=== PATIENT | female | born 1995 | race Caucasian/White ===

== ENCOUNTER 2024-02-06 09:23 | Outpatient (CLI) | payer OTHER, SELFPAY ==
[2024-02-06 18:41] LABS: Hemoglobin 13.7 g/dL (12.0-15.0); Mean Corpuscular HGB Conc 31.1 g/dl (32-36); Mean Corpuscular Hemoglobin 30.6 pg (26-34); Mean Corpuscular Volume 98.4 fl (80-100); Mean Platelet Volume 10.9 fl (7.4-10.4); Platelet Count Result 314 k/mm3 (150-375); Red Blood Count 4.47 M/mm3 (4.2-5.4); Red Cell Distribution Width 13.2 % (11.5-14.5); White Blood Count 7.8 K/mm3 (4.5-10.0)
[2024-02-06 18:45] LABS: Alanine Aminotransferase 35 U/L (6-35); Albumin Level 4.4 g/dL (3.5-5.1); Alkaline Phosphatase 71 U/L (38-126); Anion Gap 8 mmol/L (4-12); Aspartate Amino Transferase 76 U/L (14-36); Bilirubin,Total 0.3 mg/dL (0.2-1.3); Blood Urea Nitrogen 12 mg/dL (7-17); Calcium 9.4 mg/dL (8.4-10.2); Carbon Dioxide 28 mmol/L (22-30); Chloride 101 mmol/L (98-107); Cholesterol 169 mg/dL (0-200); Estimated Glomerular Filt Rate > 60; Glucose 96 mg/dL (65-110); HDL Direct 31 mg/dL; Potassium 4.4 mmol/L (3.4-5.0); Sodium 137 mmol/L (137-145); Triglycerides 79 mg/dL (<150)
[2024-02-06 18:55] LABS: LDL Cholesterol Direct 114 mg/dL
[2024-02-06 19:47] LABS: Folic Acid 7.8 ng/mL (2.76->20)
== END 2024-02-06 09:24 | disposition home or self-care (01) ==
LOC: ANHBWCLAB 09:27
PROVIDERS: PCP Nurse Practitioner Adult Health; Visit Provider Nurse Practitioner Adult Health
DX: Z13.9 Encounter for screening, unspecified (principal)
CPT/HCPCS: 36415; 80053; 80061; 82607; 82746; 84443; 85027

== ENCOUNTER 2024-02-28 13:45 | Outpatient (CLI) | payer OTHER, SELFPAY ==
[2024-02-28 20:11] LABS: Add Urine Microscopic? YES; Appearance Urine Cloudy (Clear); Bacteria Urine 4+ /hpf; Bilirubin Urine Negative (Negative); Blood Urine Negative (Negative); Color Urine Yellow (Yellow); Glucose Urine UA Negative (Negative); Ketones Urine Negative (Negative); Leukocyte Esterase Ur 2+ LEU/UL (Negative); Need Manual Microscopic Reviewed; Nitrate Urine Positive (Negative); Protein Urine Negative (Negative); RBC Urine 0-2 /hpf (0-2); Specific Grav Ur 1.022 (1.001-1.035); Squamous Epithelial Cell Urine None Seen /hpf (Few); Urobilinogen Urine 0.2 mg/dL (<2.0); WBC Urine >100 /hpf (0-3); pH Urine 5.5 (5.0-9.0)
== END 2024-02-28 13:46 | disposition home or self-care (01) ==
LOC: ANHBWCLAB 13:47
PROVIDERS: PCP Nurse Practitioner Adult Health; Visit Provider Nurse Practitioner Adult Health
DX: R39.9 Unspecified symptoms and signs involving the genitourinary system (principal)
CPT/HCPCS: 81001; 87077; 87086; 87088; 87186

== ENCOUNTER 2025-02-06 13:44 | Outpatient (CLI) | payer OTHER, SELFPAY ==
--- NOTE | ~2025-02-06 | XR_ITS ---
EXAMINATION: XR abdomen/kub 1V DATE: 02/06/2025 13:55 INDICATION: Left-sided flank pain TECHNIQUE: A supine view of the abdomen on 2 radiographs was obtained. COMPARISON: None. FINDINGS: No evident nephrolithiasis. Moderate amount of stool in the colon with proximal colon predominance which is superimposed over portions of the kidneys and ureters decreasing sensitivity for tiny renal stones. Cholecystectomy clips in right upper quadrant possible trochlea in the left hemipelvis. IMPRESSION: 1. No evident nephrolithiasis. Sensitivity for tiny stones is decreased by superimposed mottled pattern of colonic stool. Reviewed, dictated and finalized at location A. IMPRESSION: 1. No evident nephrolithiasis. Sensitivity for tiny stones is decreased by supe rimposed mottled pattern of colonic stool.
--- OUTSIDE RECORDS SUMMARY | 2025-02-06 13:54 | XMS_ITS | Clinical Summary ---
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 Gender Identity Not on file Sexual Orientation Not on file Plan of Treatment Health Maintenance Due Date Last Done Comments Hepatitis C Virus (HCV) Screening 1994 TdaP Immunization 1994 Hepatitis B Immunization (1 of 3 - 19+ 3-dose series) 2013 Pap Smear 2015 Human Papillomavirus (HPV) Immunization (1 - 3-dose SCDM series) 2021 SARS-COV-2 Immunization ( season) 2024 Cervical Cancer Screening (CCS) 2024 HPV/Cotest 2024 Influenza Immunization (#1) 2025 Respiratory Syncytial Virus (RSV) Immunization (Adult) (1 - 1-dose 75+ series) 2069 Meningococcal Immunization (ACWY) Aged Out No longer eligible based on patient's age to complete this topic Pneumococcal Immunization Combined Aged Out No longer eligible based on patient's age to complete this topic Rotavirus Immunization Aged Out No lo nger eligible based on patient's age to complete this topic Insurance [employer] on file
--- OUTSIDE RECORDS SUMMARY | 2025-02-06 13:54 | XMS_ITS | Clinical Summary ---
Author Organization [facility] Address [address] [place] [address] Care Team Providers Care Telephone Answerer Name Role Phone Jax Kumari MD Unavailable [phone] Jax Kumari MD Primary Care Provider [phone] Source Comments [facility],non-owned Affiliates and Associated Physician Practices is amultiple site organization consisting of ambulatory clinics and hospital sitesin [place], [place], [place] and [place]. This disclosure is being madepursuant to the Care Everywhere program and may not contain all information available regarding this patient. Last updated 18.[facility] Allergies Active Allergy Reactions Criticality Noted Date Comments Amoxicillin Vomiting 11/01/2018 Cyclobenzaprine Nausea and/or Vomiting 08/19/19 18 Latex Swelling Low 02/08/2011 Penicillins Vomiting 11/01/2018 Sulfa Drugs Other 06/24/2019 bad yeast infections Vancomycin Urticaria,Swelling Medium 10/19/2022 Medications * Be aware that medications may not be up to date on this document. Alwaysverify current medications with the patient. ibuprofen (MOTRIN) 800 MG tablet Take 1 (one) tablet by mouth every 8 hours as needed 30 tablet 1 2 Active acetaminophen (TYLENOL) 325 MG tablet Take 2 (two) tablets by mouth every 6 hours as needed for Fever or Pain Maximum allowable Acetaminophen amount = 4 Grams (4000 mg) / 24 hours. 2 Active oxyBUTYnin CR 24hr (Ditropan-XL) 10 MG tablet Take 1 (one) tablet by mouth once daily 3 Active tamsulosin (Flomax) 0.4 MG capsule Take 1 (one) capsule by mouth once daily 3 Active estradiol (Estrace) 2 MG tablet Take 1 (one) tablet by mouth once daily 90 tablet 4 3 Active Vagifem 10 MCG vaginal tablet INSERT 1 TABLET INTO VAGINA DAILY AT BEDTIME X 2 WEEKS THEN 2 TIMES WEEKLY UNTIL GONE DIRECTED 34 tablet 3 Active Active Problems Problem Noted Date Diagnosed Date Abdominal pain 04/05/2023 04/05/2023 Postsurgical menopause 10/19/2022 Hot flashes 10/19/2022 Complication of surgical procedure 09/07/2022 10/19/2022 Anxiety 08/30/2022 10/19/2022 Overview (10/19/2022): Last Assessment & Plan: - Cont amitriptyline High risk medication use 08/30/2022 023 Overview (10/19/2022): Last Assessment & Plan: - Requiring IV opioids for pain control - monitor RR 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 10/19/2022 Overview (10/19/2022): Added automatically from request for surgery [id number] Pelvic abscess in female 08/02/2022 023 Pseudomonas infection 08/02/2022 10/19/2022 Dysfunction of both eustachian tubes 04/01/2022 10/19/2022 Abscess of skin 11/08/2021 Acquired trigger finger 11/08/2021 Bilateral hydronephrosis 11/08/2021 Cellulitis 11/08/2021 Cyst of ovary 11/08/2021 Depressive disorder 11/08/2021 Edema of foot 11/08/2021 Folliculitis 11/08/2021 Acne 11/08/2021 Herpetic ulceration of vulva 11/08/2021 Hidradenitis suppurativa 11/08/2021 Irregular periods 11/08/2021 Kidney stone 11/08/2021 Papular eruption 11/08/2021 Suppression of menstruation 11/08/2021 Threatened miscarriage 11/08/2021 Tobacco user 11/08/2021 Urinary tract infectious disease 11/08/2021 Vaginal discharge 11/08/2021 Vomiting 11/08/2021 Surgical wound, non healing 08/04/2020 Overview (11/08/2021): Last Assessment & Plan: 25yoF presents for evaluation due to poorly healing surgical wound and concern for underlying autoimmune disease. 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 She does have a recent history of recurrent and lingering infections, denies prior issues with wound healing. +History of photosensitive rashes and fatigue, otherwise denies symptoms concerning for CTD. +FH MAunt with lupus and RA. Only finding on exam is the wound dehiscence without surrounding erythema or purulent discharge. Unfortunately the AVISE panel was not completed as the sample was too old by the time it arrived at the lab, will redraw today. Her CBC, CMP, and immunoglobulin levels were are within normal limits. Overall have a low suspicion for underlying CTD, however will await AVISE and call patient with those results. Otherwise continue follow up with surgery. Interstitial cystitis 10/12/2018 Pelvic joint pain, right 09/14/2018 Chronic pelvic pain in female 09/14/2018 Dyspareunia in female 09/14/2018 History of delivery 06/29/2016 Asthma 09/23/2010 Overview (09/23/2010): Only triggers when URI Heart murmur 09/23/2010 Overview (09/30/2010): Mom born with hole in top of heart, follows at [facility] No records from this patient received. Will need to re-request if need patient's mother's records. Did not have her full maiden name. 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 Overview (02/08/2011): Follows at [facility] prednisone prn fevers, has not needed any during Home schooled IgG 802 IgA 87 IgM 143 CRP 0.3 AST 35 (H) ALT 75 (L) History of eclampsia Resolved Problems Problem Noted Date Diagnosed Date Resolved Date Acute pharyngitis 11/08/2021 11/22/2021 -induced hypertensi on in third trimester 09/05/2016 04/18/2017 Proteinuria affecting pregna ncy in third trimester 08/18/2016 04/18/2017 Overview (08/18/2016): Weekly CMP, CBC ANT with MFM Encounter for supervision of normal first in third trimester 07/25/2016 08/21/2016 History of hemorrhage 07/08/2016 04/18/2017 History of pre-eclampsia in prior , currently in third trimester 06/29/2016 Overview (07/08/2016): Seen by MFM 06/29 Recommend: 1. Continue bASA 2. ANT at 32w gestation Appendicitis 02/08/2011 08/23/2017 Overview (02/08/2011): Acute, diagnosed at [facility] and transferred by Dr. Luna Abdominal pain, RLQ (right lower quadrant) 02/08/2011 07/08/2016 Overview (02/08/2011): Acute abdomen with rebound and guarding Other apnea of 09/23/201007/08 Overview (09/23/2010): Mom had apneic episodes until 1 years old Teen 09/23/2010 07/08/2016 Supervision of high-risk pre gnancy of young primigravida 09/02/2010 07/08/2016 Overview (02/11/2011): Consult from Dr. Tana Luna [phone] Dating: by LMP consistent with documented 7wk ultrasound PNL: A+/I/-/-, HIV NR H/H/Plt: /331 on 09/28/10 Gc/Chl: negative 02/08 GCT: 103 GBS: positive on 10/01 from urine, pending 02/08 Right upper quadrant abdominal pain 04/18/2017 Maternal iron deficiency ane tsering affecting , antepartum 04/18/2017 Sudden onset of severe headache 04/18/2017 Immunizations Immunization Administration Dates Next Due INFLUENZA VACCINE, TRIV. (AF LURIA, FLUZONE TRIVALENT; 6MO+) (IIV3) 04/09/2014,07/19/2013 INFLUENZA VACCINE 03/19/2022,,08/31/2018,2017 INFLUENZA VACCINE, QUADR. (F LUZONE; FLULAVAL; FLUARIX; AFLURIA QUADRIVALENT; 6MO+), 0.5 ML (IIV4) 03/20/2023 TDAP (7yrs+) 08/08/2016 Family History Medical History Relation Name Comments Diabetes Father Stroke Maternal Grandfather CAD (Coronary Artery Disease) Maternal Grandmother Cancer Maternal Grandmother Diabetes Maternal Grandmother Heart Failure Maternal Grandmother Hypercholesterolemia Mother Hypertension Mother Other Mother insulinoma Other Other 1 2 cousins with asthma, apnea as kids Asthma Other 2 Diabetes Other 3 Relation Name Status Comments Father Maternal Grandfather Maternal Grandmother Mother Other 1 Other 2 Other 3 Social History Tobacco Use Types Packs/Day Years Used Date Smoking Tobacco: Every Day Cigarettes Smokeless Tobacco: Never Tobacco Cessation:Ready to Q uit: No; Counseling Given: Yes Comments:3-4 a day Alcohol Use Standard Drinks/Week Comments Yes 0 (1 standard drink = 0.6 oz pur e alcohol) occ AUDIT-C Answer Date Recorded Q1: How often do you have a drink containing alc ohol? 2-4 times a month 01/04/2022 Q2: How many drinks containi ng alcohol do you have on a typical day when you are drinking? 1 or 2 01/04/2022 Q3: How often do you have si x or more drinks on one occasion? Never 01/04/2022 Overall Financial Resource Strain (CARDIA) Answe r Date Recorded Difficulty of Paying Living Expenses Not hard at all 03/25/2019 PHQ-2 Answer Date Recorded Patient Health Questionnaire-2 Score 0 04/05/2023 Hunger Vital Sign Answer Date Recorded Worried About Running Out of Food in the Last Ye ar Never true 03/25/2019 Ran Out of Food in the Last Year Never true 03/25/2019 PRAPARE - Transportation Answer Date Re corded Lack of Transportation (Medical) No 03/25/2019 Lack of Transportation (Non-Medical) No 03/25/2019 Comments No Sex and Gender Information Value Date Recorded Sex Assigned at Not on file 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 Gender Identity Not on file Sexual Orientation Not on file Occupation Industry Job Start Date Job End Date stay at home mom Not on file Not on file Not on file Last Filed Vital Signs Vital Sign Reading Time Taken Comments Blood Pressure 123/76 11/23/2022 2:31 PM CDT Pulse 90 11/23/2022 2:31 PM CDT Temperature 36.2 C (97.2 F) 01/04/2022 4:50 PM CDT Respiratory Rate 13 01/04/2022 4:50 PM CDT Oxygen Saturation 100% 01/04/2022 4:50 PM CDT Inhaled Oxygen Concentration - - Weight 84.4 kg (186 lb) 11/23/2022 2:31 PM CDT Height 157.5 cm (5' 2) 11/23/2022 2:31 PM CDT Body Mass Index 34.02 11/23/2022 2:31 PM CDT Plan of Treatment Health Maintenance Due Date Last Done Comments HEPATITIS C SCREENING 05/15/2012 HEPATITIS B VACCINE (1 of 3 - 19+ 3-dose series) 2013 PNEUMOCOCCAL VACCINE (1 of 2 - PCV) 2013 HPV VACCINE (1 - 3-dose SCDM series) 2021 COVID-19 VACCINE (3 - 2023- season) 2024 03/13/2021, 02/19/2021 DEPRESSION SCREENING 06/19/2024 04/05/2023 PAP SMEAR 09/22/2024 09/22/2021, 07/20, 04/18/2017, Additional history exists INFLUENZA VACCINE (#1) 2025 4, 03/20/2023, 03/19/2022, Additional history exists DTAP/TDAP/TD VACCINES (2 - Td or Tdap) 08/08/2026 08/08/2016 ZOSTER VACCINE (1 of 2) 2044 HIV SCREENING Completed 02/17/2016 HIB VACCINE Aged Out No longer eligi ble based on patient's age to complete this topic MENINGOCOCCAL (Group B) VACCINE SHARED DECISION-MAKING Aged Out No longer eligible based on patient's age to complete this topic MENINGOCOCCAL GROUPS A/C/Y/W VACCINE Aged Out No longer eligible based on patient's age to complete this topic Medical Devices Implanted Type Area [employer]er Device Identifier Shelf Expiration Date Model / Serial / Lot Set Stent Blk 22cm 7fr 2 Pgtl Crv Uret Implanted:Qty : 1 on 04/02/2020 by Luisito Munson MD at [facility] Stent - Non Vascular Left: Ureter [employer] [id number] / / [id number] Kena Ah Implanted:Qty : 1 on 06/13/2018 by Juan Luna MD at [facility] N/A: Abdomen [employer] 12/14/2022 [id number] / / [id number] Brr Adh 6x5in Sprflm Strl Lf Disp Implanted:Qty : 3 on 05/29/2019 by Wagner White Jr., MD at [facility] Abdomen [employer] 02/16/2022 [id number] / [id number] / [id number] Patch Cv Thk.1mm [id number] Precld Grtx - [id number] Implanted:Qty : 1 on 05/29/2019 by Wagner White Jr., MD at [facility] Abdomen [employer] 10/09/2022 [id number] / [id number] / [id number] Sepra Film Implanted:Qty : 3 on 06/24/2019 by Wagner White Jr., MD at [facility] N/A: Abdomen 12/16/2021 [id number] / / [id number] Explanted Type Area [employer] Device Identifier Shelf Expiration Date Model / Serial / Lot Gwire Str Sensor .035in X 150cm Explanted:Qty: 2 on 09/26/2018 by Gladys Kearns MD at [facility] Bilateral: Ureter 07/20/2021 [id number] / [id number] / [id number] Description:kg Gwire Str Sensor .035in X 150cm Explanted:Qty: 2 on 05/29/2019 by Wagner White Jr., MD at [facility] Bilateral: Abdomen 03/27/2022 [id number] / / [id number] Description:STRAIGHT TIP NIT INOL WIRE WITH HYDROPHILIC TIP Procedures Procedure Name Priority Date/Time Associated Diagnosis Comments PAP IG LB RFLX HPV APTIMA ASCU 09/22/2021 12:00 AM CDT HIV 1/0/2 ANTIBODIES W CONFIRM Routine 02/17/2016 from Last 3 Months or Most Recently Relevant to Health Maintenance Results * PAP IG LB RFLX HPV APTIMA ASCU (09/22/2021 12:00 AM CDT) Diagnosis [facility] INSURANCE BILL Comment:NEGATIVE FOR INTRAEP ITHELIAL LESION OR MALIGNANCY. Specimen Adequacy [facility] INSURANCE BILL Comment: Satisfactory for evaluation. Endocervical and/or squamous metaplastic cells (endocervical component) are present. Clinician Provided ICD10 [facility] INSURANCE BILL Comment:Z01.419 Performed by [facility] INSURANCE BILL Comment:James Aviles, Cyto technologist (ASCP) Comment . [facility] INSURANCE BILL Note [facility] INSURANCE BILL Comment: The Pap smear is a screening test designed to aid in the detection of premalignant and malignant conditions of the uterine cervix. It is not a diagnostic procedure and should not be used as the sole means of detecting cervical cancer. Both false-positive and false-negative reports do occur. . [facility] CPT Code Automation [facility] INSURANCE BILL Comment: This liquid based ThinPrep(R) pap test was screened with the use of an image guided system. Note [facility] INSURANCE BILL Comment: The HPV DNA reflex criteria were not met with this specimen result therefore, no HPV testing was performed. . 09/22/2021 09/23/2021 Narrative [facility] INSURANCE BILL - 09/27/2021 5:08 PM CDT Source.............Cervix No. of containers..01 ThinPrep Vial Resulting Agency Comment Lab Testing performed at: [address] [place] [id number] Juan Luna MD LAB - PATHOLOGY/CYTOLOGY ANAI GUZMAN Final Result [facility] INSURANCE BILL [address] [place] [address] * HIV 1/0/2 ANTIBODIES W CONFIRM (PO REF LAB) (02/17/2016) HIV-1/HIV-2 negative [facility] Provider LAB - MICROBIOLOGY ORDERA BLES Final Result from Last 3 Months or Most Recently Relevant to Health Maintenance Insurance [facility] MEDICA[facility] MEDICAID - [place] Subscriber Plan / Payer (Ef fective for All Dates) Name:Pam Aguirre Relation to Subscriber:Self Name:Pam Aguirre Payer ID:Not on file Group ID:Not on file Type:Medicaid [place] Address: [place] [id number] Advance Directives * Full Code (Latest Code Status on File) Date Activated Date Inactivated Comments 09/26/2018 5:43 PM 09/26/2018 7:56 PM * Full Code Date Activated Date Inactivated Comments 06/13/2018 12:05 PM 06/13/2018 3:08 PM * Full Code Date Activated Date Inactivated Comments 08/28/2017 7:50 AM 08/28/2017 10:47 AM * Full Code Date Activated Date Inactivated Comments 09/05/2016 4:20 PM 09/07/2016 6:27 PM * Full Code Date Activated Date Inactivated Comments 08/28/2016 5:35 AM 08/29/2016 6:22 PM Care Teams Telephone Answerer Relationship Specialty Start Date End Date Jax Kumari MD [facility] [place] [address] PCP - General Family Medicine 09/09/16 Jax Kumari MD [address] [place] [address] [address] [place] [address] Physician Family Medicine 08/30/16
--- OUTSIDE RECORDS SUMMARY | 2025-02-06 13:54 | XMS_ITS | Clinical Summary ---
Author Organization [facility] Care Team Providers Care Fast Foods Worker Name Role Phone Radames Villarreal MD Unavailable [phone] Jax Kumari MD Primary Care Provider [phone] Allergies Active Allergy Reactions Criticality Noted Date Comments Amoxicillin Vomiting Low 08/04/2020 Cyclobenzaprine Vomiting Low 08/04/2020 Latex Swelling,Rash Medium 08/04/2020 Penicillins Vomiting Low 08/04/2020 Sulfa (Sulfonamide Antibiotics) Unknown 04/01/2022 Vancomycin Swelling,Other (See comments) Medium 08/29/2022 Red Man Syndrome Medications ibuprofen (ADVIL,MOTRIN) 800 mg tabletIndications:P ain Take 1 tablet (800 mg total) by mouth every 6 (six) hours as needed 2 Active amitriptyline (ELAVIL) 25 mg tabletIndications:a nxiety Take 1 tablet (25 mg total) by mouth nightly 3 Active ondansetron ODT (ZOFRAN-ODT) 8 mg disintegrating tabletIndications:n ausea Take 1 tablet (8 mg total) by mouth every 8 (eight) hours as needed 3 Active polyethylene glycol (MIRALAX) 17 gram/dose powderIndications:c onstipation Take 17 g by mouth daily as needed 3 Active Bacillus coagulans/inulin (PROBIOTIC WITH PREBIOTIC ORAL)Indications:alvarez pplement Take 1 tablet by mouth every evening Active tamsulosin (FLOMAX) 0.4 mg extended release capsuleIndications: Bladder Outlet Obstruction Take 1 capsule (0.4 mg total) by mouth daily 30 capsule 3 Active senna-docusate (PERICOLACE) 8.6-50 mg Take 2 tablets by mouth nightly 15 tablet 3 Active oxyCODONE (ROXICODONE) 5 mg immediate release tabletIndications:P ain Take 1 tablet (5 mg total) by mouth every 3 (three) hours as needed for pain 20 tablet 3 Active oxybutynin XL (DITROPAN-XL) 10 mg 24 hr tabletIndications:B ladder Hyperactivity Take 1 tablet (10 mg total) by mouth daily for 14 days 14 tablet 3 Active mirabegron ER (MYRBETRIQ) 50 mg tablet extended release 24 hr Take 1 tablet (50 mg total) by mouth daily for 14 days 14 tablet 3 Active acetaminophen 500 mg capsuleIndications: Pain Take 2 capsules (1,000 mg total) by mouth every 6 (six) hours 30 tablet 3 Active Active Problems Problem Noted Date Diagnosed Date Fever, unspecified fever cause 10/01/2022 Ureteral stricture, left 09/28/2022 Complicated UTI (urinary tract infection) 2022 Assessment & Plan (08/31/2022 3:24 PM CDT): Patient presenting with 24hrs of L flank pain with acute onset hematuria in L nephrostomy bag prior to presentation. Workup showed WBC 11, HR 117, afebrile. UA consistent with infection, but culture with contamination from enteric cecil. CT A/P with left nephrostomy tube in place with minimal amount of ureteral dilatation and urothelial enhancement, however, no hydronephrosis. - Urine culture here contaminated with enteric cecil - OS urine culture ([facility] [facility]) currently growing 2-3 GNRs, awaiting speciation - Improving with cefepime, will transition to ciprofloxacin 500 mg BID x 10 days as previously planned - Instructed on return precautions including worsening fever, malaise, flank pain, dysuria, hematuria - Patient will call outpatient CPAP to reschedule appointment prior to planned urologic procedure 09/13/22 Acute pain 08/30/2022 Assessment & Plan (08/30/2022 5:17 AM CDT): - Oxycodone PRN with dilaudid for breakthrough High risk medication use 08/30/2022 Assessment & Plan (08/30/2022 5:18 AM CDT): - Requiring IV opioids for pain control - monitor RR Anxiety 08/30/2022 Assessment & Plan (08/30/2022 5:18 AM CDT): - Cont amitriptyline Ureteral stricture 08/03/2022 Overview (08/03/2022): Added automatically from request for surgery [id number] Dysfunction of both eustachian tubes 04/01/2022 Surgical wound, non healing 08/04/2020 Assessment & Plan (08/18/2020 3:19 PM SENIOR GEOTECHNICAL ENGINEER): 25yoDoreen presents for evaluation due to poorly healing [...] results. Otherwise continue follow up with surgery. Assessment & Plan (08/04/2020 11:00 AM SENIOR GEOTECHNICAL ENGINEER): 25yoF presents for evaluation due to poorly [...] dehiscence without surrounding erythema or purulent discharge. 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 To fully evaluate will check immunoglobulin levels as well as an AVISE panel and CBC and CMP. Plan for follow up in 2 weeks to review results, pending this will consider referral to immunology. Resolved Problems Problem Noted Date Diagnosed Date Resolved Date Sepsis 08/30/2022 08/31/2022 Assessment & Plan (08/30/2022 5:17 AM CDT): - Meets SIRS criteria in setting of pyelonephritis per above - Mgt above Immunizations Immunization Administration Dates Next Due Influenza, Unspecified 03/19/2022 Surgical History Surgery Date Site/Laterality Comments MYRINGOTOMY W/ TUBES 06/19/1999 - 06/18/2000 Bilateral TONSILLECTOMY/ADENOIDECTOMY 06/19/1999 - 06/18/2000 SECTION 06/19/2016 - 06/18/2017 APPENDECTOMY 06/19/2010 - 06/18/2011 CHOLECYSTECTOMY HYSTERECTOMY 06/19/2022 - 07/19/2022 SECTION 06/19/2010 - 06/18/2011 Medical History Medical History Date Comments Allergic rhinitis Anxiety Sinusitis Endometriosis Ureteral stricture Due to nephro lithiasis Nephrolithiasis Family History Medical History Relation Name Comments Cancer Maternal Grandfather Hypertension Other Thyroid disease Other Relation Name Status Comments Maternal Grandfather Other Social History Tobacco Use Types Packs/Day Years Used Date Smoking Tobacco: Every Day Cigarettes 0.3 14.6 Started: 2010 Smokeless Tobacco: Never Social Connection and Isolation Panel Answer Date Recorded In a typical week, how many times do you talk on the phone with family, friends, or neighbors? More than three times a week 10/03/2022 How often do you get togethe r with friends or relatives? More than three times a week 10/03/2022 How often do you attend chur ContactMonkey or adventist services? Never 10/03/2022 Do you belong to any clubs o r organizations such as hoahaoism groups, unions, fraternal or athletic groups, or school groups? No 10/03/2022 How often do you attend meet ings of the clubs or organizations you belong to? Never 10/03/2022 Are you , , di vorced, , never , or living with a partner? 10/03/2022 AUDIT-C Answer Date Recorded Q1: How often do you have a drink containing alc ohol? 2-4 times a month 09/27/2022 Q2: How many drinks containi ng alcohol do you have on a typical day when you are drinking? 1 or 2 09/27/2022 Q3: How often do you have si x or more drinks on one occasion? Never 09/27/2022 Overall Financial Resource Strain (CARDIA) Answe r Date Recorded How hard is it for you to pa y for the very basics like food, housing, medical care, and heating? Not very hard 10/03/2022 PHQ-2 Answer Date Recorded PHQ-2 Total Score (If total score is 3 or more points, staff should administer the PHQ-9) 1 10/03/2022 Hunger Vital Sign Answer Date Recorded Within the past 12 months, y ou worried that your food would run out before you got the money to buy more. Never true 10/04/19 23 Within the past 12 months, t he food you bought just didn't last and you didn't have money to get more. Never true 10/03/2022 PRAPARE - Transportation Answer Date Re corded In the past 12 months, has l ack of transportation kept you from medical appointments or from getting medications? No 09/17 In the past 12 months, has l ack of transportation kept you from meetings, work, or from getting things needed for daily living? No 10/03/2022 Housing Stability Vital Sign Answer Marcelino e Recorded In the last 12 months, was t here a time when you were not able to pay the mortgage or rent on time? No 10/03/2022 In the last 12 months, how many places have you lived? 1 10/03/2022 In the last 12 months, was t here a time when you did not have a steady place to sleep or slept in a correction (including now)? No 10/03/2022 Personal Safety Answer Date Recorded Have you ever been in or are you currently in a harmful physical or emotional relationship or is someone making you feel afraid or unsafe? Denies 11/22/2022 Comments No Sex and Gender Information Value Date Recorded Sex Assigned at Not on file Legal Sex Female 12:29 PM SENIOR GEOTECHNICAL ENGINEER Gender Identity Not on file Sexual Orientation Not on file Obstetrics History Last Filed Vital Signs Vital Sign Reading Time Taken Comments Blood Pressure 105/77 11/22/2022 5:00 PM CDT Pulse 71 11/22/2022 5:00 PM CDT Temperature 37 C (98.6 F) 11/22/2022 1:04 PM CDT Respiratory Rate 20 11/22/2022 5:00 PM CDT Oxygen Saturation 99% 11/22/2022 5:00 PM CDT Inhaled Oxygen Concentration - - Weight 84.4 kg (186 lb) 11/22/2022 1:04 PM CDT Height 157.5 cm (5' 2) 11/22/2022 1:04 PM CDT Body Mass Index 34.02 11/22/2022 1:04 PM CDT Plan of Treatment Health Maintenance Due Date Last Done Comments Hepatitis C Screening 1994 Varicella Vaccines (2 of 2 - 2-dose childhood series) 1998 08/19/1995 Regular Well Visit/Exam 18-64 2012 Pneumococcal vaccine <65 (1 of 2 - PCV) 2013 HPV Vaccines (1 - 3-dose SCD M series) 2021 Depression Screening 10/02/2023 10/01/2022 Covid-19 Vaccine (3 - 2023-2 5 season) 2024 03/13/2021, 02/19/2021 Influenza Vaccine (#1) 2025 , 03/30/2021, 08/31/2018, Additional history exists DTaP/Tdap/Td Vaccine (8 - Td or Tdap) 08/08/2026 08/08/2016, 06/29/2005, 08/27/1999, Additional history exists Hepatitis B Screening Completed 01/16/1995 , 1994, 1994 Medical Devices Implanted Type Area Button Tufting Machine Operator Device Identifier Shelf Expiration Date Model / Serial / Lot [employer] Universa 7fr 20cm Radiopaque Positioner Monofilament Tether Firm [id number] - [id number] Implanted:Qty: 1 on 09/27/2022 by Howie Angulo MD at [facility] Stent Left: Ureter [facility] [id number] 07/14/2024 [id number] / / [id number] Insurance [employer] BLUE ACCESS OOS BLUE ACCESS OOS Advance Directives For more information, please contact: [phone] * Full Code (Latest Code Status on File) Date Activated Date Inactivated Comments 10/01/2022 5:23 PM 10/05/2022 1:46 PM * Full Code Date Activated Date Inactivated Comments 09/27/2022 3:34 PM 09/30/2022 9:38 PM * Full Code Date Activated Date Inactivated Comments 08/30/2022 3:48 PM 08/31/2022 8:16 PM Care Teams Fast Foods Worker Relationship Specialty Start Date End Date Jax Kumari MD [address] [place] [id number] PCP - General Family Medicine 07/27/20 Radames Villarreal MD [facility] [place] [address] Consulting Physician Rheumatology 07/27/20
--- OUTSIDE RECORDS SUMMARY | 2025-02-06 13:54 | XMS_ITS | Clinical Summary ---
Author Organization [facility] Address [facility] [place] [address] Care Team Providers Care Apparel Stock Checker Name Role Phone Jax Diaz MD Primary Care Provider [phone] Allergies Active Allergy Reactions Criticality Noted Date Comments Amoxicillin Vomiting 03/04/2020 Cyclobenzaprine Vomiting 03/04/2020 Latex Swelling 03/04/2020 Penicillins Vomiting 03/04/2020 Sulfa Antibiotics Other (see comment) 0 Yeast infection Medications oxybutynin XL 10 MG 24 hr tablet Take 10 mg by mouth every morning. 02/22/2020 Active ALPRAZolam 0.25 MG tablet Take 0.25 mg by mouth nightly as needed for Sleep. Active HYDROcodone-tsering taminophen 5-325 MG tabletIndicatio ns:Acute Pain < 3 Day Supply Take 1 tablet by mouth every 6 (six) hours as needed for Pain. Indications: Acute Pain < 3 Day Supply 10 tablet 12/28/2021 Active Active Problems No known active problems Family History Medical History Relation Comments Cancer Maternal Grandfather Lymphoma/br ain Hypertension Maternal Grandfather Diabetes Maternal Grandmother Heart Disease Maternal Grandmother Hypertension Maternal Grandmother Hypertension Mother Relation Status Comments Maternal Grandfather Maternal Grandmother Mother Social History Tobacco Use Types Packs/Day Years Used Date Smoking Tobacco: Every Day Smokeless Tobacco: Never Alcohol Use Standard Drinks/Week Comments Yes 0 (1 standard drink = 0.6 oz pur e alcohol) occ Comments No Sex and Gender Information Value Date Recorded Sex Assigned at Not on file Legal Sex Female 11:26 AM CDT Gender Identity Not on file Sexual Orientation Not on file Last Filed Vital Signs Vital Sign Reading Time Taken Comments Blood Pressure 120/78 12/28/2021 5:17 PM CDT Pulse 77 12/28/2021 5:17 PM CDT Temperature 36.6 C (97.8 F) 12/28/2021 2:26 PM CDT Respiratory Rate 20 12/28/2021 2:26 PM CDT Oxygen Saturation 100% 12/28/2021 5:17 PM CDT Inhaled Oxygen Concentration - - Weight 82.5 kg (181 lb 14.1 oz) 12/28/2021 2:26 PM CDT Height 157.5 cm (5' 2) 12/28/2021 2:26 PM CDT Body Mass Index 33.27 12/28/2021 2:26 PM CDT Plan of Treatment Health Maintenance Due Date Last Done Comments Cervical Cancer Screening Pap Smear (Age 30 to 64) Every 3 Years 1994 Annual Physical 1997 Hepatitis C 2012 Pneumococcal Vaccine: Pediatrics (0 to 5 Years) and At-Risk Patients (6 to 49 Years) (1 of 2 - PCV) 2013 HPV Vaccines (1 - 3-dose SCDM series) 2021 COVID-19 Vaccine ( season) 2024 03/13/2021, 02/19/2021 Cervical Cancer Screening Pap with HPV Testing (Age 30 to 64) Every 5 Years 2024 Cervical Cancer Screening with HPV 2024 DTaP, Tdap and Td Vaccines (8 - Td or Tdap) 08/08/2026 08/08/2016, 06/29/2005, 08/27/1999, Additional history exists Hepatitis B Vaccines Completed 01/16/1995, 1994, 1994 Meningococcal B Vaccine Aged Out No l onger eligible based on patient's age to complete this topic Meningococcal Vaccine Aged Out No john allison eligible based on patient's age to complete this topic RSV Immunizations Under 20 Months Aged Out No longer eligible based on patient's age to complete this topic Insurance [facility] BLUE SHIELD MEDICAID Care Teams Apparel Stock Checker Relationship Specialty Start Date End Date Jax Diaz MD [address] [place] [address] PCP - General FAMILY PRACTICE 02/13/20
--- OUTSIDE RECORDS SUMMARY | 2025-02-06 13:54 | XMS_ITS | Encounter Summary ---
Author Organization [facility] Address [facility] [place] [address] Care Team Providers Care Writing Center Director Name Role Phone Jax Diaz MD Primary Care Provider [phone] Encounter Details Date Type Department Care Team (Late st Contact Info) Description 05/28/2020 Prep for Procedure [facility] [address] [place] [address] [place] [address] [facility] [address] [place] [address] Social History Tobacco Use Types Packs/Day Years [...] on file Sexual Orientation Not on file COVID-19 Exposure Response Date Recorded In the last month, have you been in contact with someone who was confirmed or suspected to have Coronavirus / COVID-19? No / Unsure 05/29/2020 10:27 AM SHIPWRIGHT documented as of this encounter Plan of Treatment Not on file documented as of this encounter Results * PRE-SURGICAL/PRE-PROCEDURE CORONAVIRUS (COVID 19) (05/29/2020 10:39 AM SHIPWRIGHT) CORONAVIRUS SARS COV 2 PCR (RESP) NOT DETECTED NOT DETECTED 05/31/2020 12:51 AM SHIPWRIGHT [facility] Comment: A Not Detected (negative) test result for this test means that SARS- CoV-2 RNA was not present in the specimen above the limit of detection. A negative result does not rule out the possibility of COVID-19 and should not be used as the sole basis for treatment or patient management decisions. If COVID-19 is still suspected, based on exposure history together with other clinical findings, re-testing should be considered in consultation with public health authorities. Laboratory test results should always be considered in the context of clinical observations and epidemiological data in making a final diagnosis and patient management decisions. Please review the Fact Sheets and FDA authorized labeling available for health care providers and patients using the following websites: [email or web address] [email or web address]-19/HCP/NAAT/fact-sheet2 [email or web address] Mobile/home/Covid-19/Patients/NAAT/ fact-sheet2 This test has been authorized by the FDA under an Emergency Use Authorization (EUA) for use by authorized laboratories. Due to the current public health emergency, [facility] is receiving a high volume of samples from a wide variety of swabs and media for COVID-19 testing. In order to serve patients during this public health crisis, samples from appropriate clinical sources are being tested. Negative test results derived from specimens received in non-commercially manufactured viral collection and transport media, or in media and sample collection kits not yet authorized by FDA for COVID-19 testing should be cautiously evaluated and the patient potentially subjected to extra precautions such as additional clinical monitoring, including collection of an additional specimen. Methodology: Nucleic Acid Amplification Test (NAAT) includes RT-PCR or TMA Additional information about COVID-19 can be found at the [facility] website: [email or web address] [email or web address]. [facility] [address] [place] [address] Director: NANCY TAYLOR DO,MPH FIRST TEST UNKNOWN 05/29/2020 10:32 AM [facility] EMPLOYED IN HEALTHCARE YES 05/29/2020 10:32 AM [facility] SYMPTOMATIC DEFINED BY CDC NO 05/29/2020 10:32 AM [facility] DATE OF SYMPTOM ONSET =FASTING UNKNOWN 05/29/2020 11:09 AM [facility] HOSPITALIZATION STATUS NO 05/29/2020 10:32 AM [facility] PATIENT IN ICU NO 05/29/2020 10:32 AM [facility] RESIDENT OF CRITICAL ACCESS HOSPITAL CARE NO 05/29/2020 10:32 AM [facility] UNKNOWN 05/29/2020 10:32 AM [facility] PATIENT'S RACE WHITE OR 05/29/2020 10:32 AM [facility] ETHNICITY NONHISPANIC 05/29/2020 10:32 AM [facility] SOURCE (QST) NASOPHARYNGEAL SWAB 05/29/2020 10:32 AM [facility] NASOPHARYNGEAL SWAB / Unknown 05/29/2020 10:39 AM [facility]WR[facility] us Alonso Sesay MD MICROBIOLOGY - GENERAL ORDERABLE S Final Result Performing Organization Address City/State/[facility] Co de Phone Number [facility] [address] [place] [address], [place] [phone] [place] [address], documented in this encounter Visit Diagnoses Diagnosis Preop testing- Primary Preoperative examination, unspecified documented in this encounter Additional Health Concerns Infection Onset Date Last Indicated Resolved Time COVID-19 Rule Out 05/29/2020 05/29/2020 05/31/2020 12:51 AM SHIPWRIGHT documented as of this encounter Care Teams Writing Center Director Relationship Specialty Start Date End Date Jax Diaz MD [address] [address] PCP - General FAMILY PRACTICE 02/13/20 documented as of this encounter
[2025-02-06 18:52] LABS: Add Urine Microscopic? YES; Appearance Urine Cloudy (Clear); Glucose Urine UA Negative (Negative); Leukocyte Esterase Ur Negative LEU/UL (Negative); Nitrate Urine Negative (Negative); Non Pathogenic Casts 0-2; Specific Grav Ur 1.017 (1.001-1.035)
== END 2025-02-06 13:45 | disposition home or self-care (01) ==
PROVIDERS: PCP Nurse Practitioner Adult Health; Visit Provider Nurse Practitioner Adult Health
DX: R10.9 Unspecified abdominal pain (principal); R39.9 Unspecified symptoms and signs involving the genitourinary system
CPT/HCPCS: 74018; 81001; 87086